=== PATIENT | female | born 1965 | race African-American/Black ===

== ENCOUNTER 2019-08-07 15:05 | Emergency (ER) | payer OTHER ==
[2019-08-07] MEDS: PROCHLORPERAZINE 10 MG INJ IV (15:47)
[2019-08-07] MEDS: SOD CHLORIDE 0.9% 1,000 ML IV (15:47)
[2019-08-07] MEDS: DIPHENHYDRAMINE 50 MG INJ IV (15:47)
[2019-08-07 15:51] LABS: ADD MAN DIFF? NO
[2019-08-07 15:54] LABS: BASOPHIL # 0.1 10^3/ul (0.0-0.1); BASOPHILS % 0.8 % (0.0-2.0); EOSINOPHILS # 0.4 10^3/ul (0.0-0.5); EOSINOPHILS % 4.9 % (0.0-7.0); HEMATOCRIT 38.5 % (37.0-47.0); HEMOGLOBIN 12.8 g/dl (12.0-16.0); LYMPHOCYTES # 3.1 10^3/ul (0.8-2.9); LYMPHOCYTES % 38.6 % (15.0-51.0); MEAN CORPUSCULAR HEMOGLOBIN 29.2 pg (29.0-33.0); MEAN CORPUSCULAR HGB CONC 33.2 g/dl (32.0-37.0); MEAN CORPUSCULAR VOLUME 87.7 fl (82.0-101.0); MEAN PLATELET VOLUME 10.4 fl (7.4-10.4); MONOCYTE # 0.5 10^3/ul (0.3-0.9); MONOCYTES % 6.8 % (0.0-11.0); NEUTROPHIL # 3.9 10^3/ul (1.6-7.5); NEUTROPHILS % 48.6 % (39.0-77.0); PLATELET COUNT 269 10^3/UL (140-415); RED BLOOD COUNT 4.39 10^6/ul (4.20-5.40)
[2019-08-07 15:54] LABS: WHITE BLOOD COUNT 7.9 10^3/ul (4.8-10.8)
[2019-08-07] MEDS: HYDROCODONE/APAP (10/325) TAB PO (16:00)
[2019-08-07 16:15] LABS: ANION GAP 7 (5-13); BLOOD UREA NITROGEN 15 mg/dl (7-20); CALCIUM 8.4 mg/dl (8.4-10.2); CARBON DIOXIDE 25 mmol/L (21-31); CHLORIDE 104 mmol/L (97-110); CREATININE 0.99 mg/dl (0.44-1.00); Estimated GFR > 60 mL/min (>60); GLUCOSE 110 mg/dl (70-220); PHENYTOIN (DILANTIN) 11.1 ug/ml (10.0-20.0); POTASSIUM 3.9 mmol/L (3.5-5.1); SODIUM 136 mmol/L (135-144)
[2019-08-07] MEDS: IBUPROFEN 200 MG TAB PO (17:54)
== END 2019-08-07 18:33 | disposition home or self-care (01) ==
LOC: E/R 15:05
DX: G40.909 Epilepsy, unspecified, not intractable, without status epilepticus (principal); G89.29 Other chronic pain; I10 Essential (primary) hypertension; J45.909 Unspecified asthma, uncomplicated; F17.210 Nicotine dependence, cigarettes, uncomplicated; R40.2142 Coma scale, eyes open, spontaneous, at arrival to emergency department; R40.2362 Coma scale, best motor response, obeys commands, at arrival to emergency department; R40.2252 Coma scale, best verbal response, oriented, at arrival to emergency department; Z76.5 Malingerer [conscious simulation]
CPT/HCPCS: 36415; 70450; 80048; 80185; 85025; 96374; 96375; 99285-25